=== PATIENT | female | born 1990 | race American Indian/Alaskan Native ===

== ENCOUNTER 2017-04-10 10:36 | Emergency (ER) | payer MEDICAID ==
--- NOTE | 2017-04-10 12:10 | Emergency Department Report ---
ED Headache HPI - General Chief Complaint: Nausea/Vomiting/Diarrhea Stated Complaint: VERAS/NUMBNESS/NAUSEA Time Seen by Provider: 04/10/17 11:56 - History of Present Illness Initial Comments: This is a 26-year-old female nontoxic, well nourished in appearance, no acute signs of distress presents to the ED complaining of that presents with bilateral neck pain radiating to upper extremities and headache x1 week. Patient stated she was diagnosed with sinusitis in [facility] and received Augmentin with no relief. Patient stated headache is getting worse with no relief with OTC mediations. Patient describes headache as diffuse with level of 10/10. Patient describes headache as worst headache. Patient also stated that headaches are causing her to be very nauseous but denies any vomiting. Patient denies any trauma to the head. Patient denies any fever, chills, vomiting, stiff neck, chest pain, blurry vision, visual changes, shortness of breath, hemoptysis, calf pain, calf tenderness, abdominal pain, back pain, dysuria or polyuria or hematuria. Patient denies any neurological symptoms. Patient agrees to chronic headaches but denies this severe. Patient stated darkness makes the patient feel better and lights make headache worse. Patient states allergies to penicillin with unknown reaction. Past medical history includes asthma. Last menstrual cycle 04/03/2017. Timing/Duration: 1 week Quality: achy, other Head Injury Location: other (diffuse) Recent Head Trauma: no recent headache/trauma, frequent headaches, chronic headaches Associated Symptoms: denies symptoms, nausea/vomiting (nausea). denies: confusion, fatigue, facial pain, fever/chills, flushing, loss of consciousness, nasal congestion, nasal drainage, numbness in legs/feet, rash, seizures, sinus infection, stiff neck, vision changes, weakness Allergies/Adverse Reactions: Allergies Penicillins Allergy (Verified 05/11/16 21:23) Unknown Home Medications: Ambulatory Orders Butalbit/Acetamin/Caff/Codeine [Fioricet/Codeine [id number]] 1 cap PO Q8HR PRN #14 cap 05/31/15 Ibuprofen [Motrin] 800 mg PO Q8HR PRN #60 tablet 05/31/15 ALBUTEROL Inhaler [ProAir HFA Inhaler] 2 puff IH QID PRN #1 inhalation 05/11/16 Azithromycin [Zithromax Z-COLTEN] 250 mg PO QDAY #6 tablet 05/11/16 Ibuprofen [Motrin] 800 mg PO Q8HR PRN #14 tablet 05/11/16 Promethazine /Codeine [Phenergan/Codeine 6.25-10 mg/5Ml] 5 ml PO Q6H PRN #90 ml 05/11/16 guaiFENesin [Mucinex] 600 mg PO Q6HR #20 tab.er.12h 05/11/16 Butalb/Acetamin/Caff 50-325-40 [Fioricet] 1 tab PO Q6HR PRN #30 tab 04/10/17 Ondansetron [Zofran Odt] 4 mg PO Q8H #15 tab.rapdis 04/10/17 ED Review of Systems ROS: Stated complaint: VERAS/NUMBNESS/NAUSEA Other details as noted in HPI Constitutional: denies: chills, fever Eyes: denies: eye pain, eye discharge, vision change ENT: denies: ear pain, throat pain Respiratory: denies: cough, shortness of breath, wheezing Cardiovascular: denies: chest pain, palpitations Endocrine: no symptoms reported Gastrointestinal: nausea. denies: abdominal pain, vomiting, diarrhea Genitourinary: denies: urgency, dysuria, discharge Musculoskeletal: back pain (neck region). denies: joint swelling, arthralgia Skin: denies: rash, lesions Neurological: denies: headache, weakness, paresthesias Psychiatric: denies: anxiety, depression Hematological/Lymphatic: denies: easy bleeding, easy bruising ED Past Medical Hx - Past Medical History Previous Medical History?: Yes Hx Asthma: Yes - Surgical History Past Surgical History?: Yes Additional Surgical History: right knee surgery. - Social History Smoking Status: Current Every Day Smoker Substance Use Type: Alcohol, Marijuana, Prescribed - Medications Home Medications: Home Medications Medication Instructions Recorded Confirmed Last Taken Type Butalbit/Acetamin/Caff/Codeine 1 cap PO Q8HR PRN #14 cap 05/31/15 Unknown Rx [Fioricet/Codeine [id number]] Ibuprofen [Motrin] 800 mg PO Q8HR PRN #60 tablet 05/31/15 Unknown Rx ALBUTEROL Inhaler [ProAir HFA 2 puff IH QID PRN #1 inhalation 05/11/16 Unknown Rx Inhaler] Azithromycin [Zithromax Z-COLTEN] 250 mg PO QDAY #6 tablet 05/11/16 Unknown Rx Ibuprofen [Motrin] 800 mg PO Q8HR PRN #14 tablet 05/11/16 Unknown Rx Promethazine /Codeine 5 ml PO Q6H PRN #90 ml 05/11/16 Unknown Rx [Phenergan/Codeine 6.25-10 mg/5Ml] guaiFENesin [Mucinex] 600 mg PO Q6HR #20 tab.er.12h 05/11/16 Unknown Rx Butalb/Acetamin/Caff 50-325-40 1 tab PO Q6HR PRN #30 tab 04/10/17 Unknown Rx [Fioricet] Ondansetron [Zofran Odt] 4 mg PO Q8H #15 tab.rapdis 04/10/17 Unknown Rx ED Physical Exam - General Limitations: No Limitations General appearance: alert, in no apparent distress - Head Head exam: Present: atraumatic, normocephalic - Eye Eye exam: Present: normal appearance, PERRL, EOMI. Absent: scleral icterus, conjunctival injection, nystagmus, periorbital swelling, periorbital tenderness Pupils: Present: normal accommodation - ENT ENT exam: Present: normal exam, normal orophraynx, mucous membranes moist, TM's normal bilaterally, normal external ear exam - Neck Neck exam: Present: normal inspection, full ROM. Absent: tenderness, meningismus, lymphadenopathy, thyromegaly - Expanded Neck Exam Expanded Neck exam: Present: other (Negative Kernig and Brudzinski signs). Absent: tenderness, midline deformity - Respiratory Respiratory exam: Present: normal lung sounds bilaterally. Absent: respiratory distress, wheezes, rales, rhonchi, stridor, chest wall tenderness, accessory muscle use, decreased breath sounds, prolonged expiratory - Cardiovascular Cardiovascular Exam: Present: regular rate, normal rhythm, normal heart sounds. Absent: bradycardia, tachycardia, irregular rhythm, systolic murmur, diastolic murmur, rubs, gallop - GI/Abdominal GI/Abdominal exam: Present: soft, normal bowel sounds. Absent: distended, tenderness, guarding, rebound, rigid, diminished bowel sounds - Rectal Rectal exam: Present: deferred - Extremities Exam Extremities exam: Present: normal inspection, full ROM, normal capillary refill. Absent: tenderness, pedal edema, joint swelling, calf tenderness - Back Exam Back exam: Present: normal inspection, full ROM. Absent: tenderness, CVA tenderness (R), CVA tenderness (L), muscle spasm, paraspinal tenderness, vertebral tenderness, rash noted - Neurological Exam Neurological exam: Present: alert, oriented X3, CN II-XII intact, normal gait, reflexes normal - Expanded Neurological Exam Expanded Patient oriented to: Present: person, place, time Speech: Present: fluid speech Cranial nerves: EOM's Intact: Normal, Gag Reflex: Normal, Tongue Deviation: Normal, Nystagmus: Normal, Facial Sensation: Normal, Facial Palsy with Forehead Movement: Normal, Facial Palsy without Forehead Movement: Normal Cerebellar function: Finger to Nose: Normal, Heel to Randall: Normal, Romberg: Normal Upper motor neuron: Ever Neglect: Normal, Pronator Drift: Normal, Babinski Sign : Normal, Sensory Extinction: Normal Sensory exam: Upper Extremity Light Touch: Normal, Upper Extremity Pin Prick: Normal, Upper Extremity Temperature: Normal, UE 2 Point Discrimination: Normal, Lower Extremity Light Touch: Normal, Lower Extremity Pin Prick: Normal, Lower Extremity Temperature: Normal, LE 2 Point Discrimination: Normal Motor strength exam: RUE: 5, LUE: 5, RLE: 5, LLE: 5 DTR: bicep (R): 2+, bicep (L): 2+, tricep (R): 2+, tricep (L): 2+, knee (R): 2+ , knee (L): 2+, ankle (R): 2+, ankle (L): 2+ Best Eye Response (Ferguson): (4) open spontaneously Best Motor Response (Ferguson): (6) obeys commands Best Verbal Response (Ferguson): (5) oriented Livan Total: 15 - Psychiatric Psychiatric exam: Present: normal affect, normal mood - Skin Skin exam: Present: warm, dry, intact, normal color. Absent: rash ED Course Vital Signs 04/10/17 10:43 Temperature 97.8 F Pulse Rate 79 Respiratory 24 Rate Blood Pressure 131/75 O2 Sat by Pulse 100 Oximetry - Reevaluation(s) Reevaluation #1: 04/10/17 12:14 Patient is speaking in full sentences with no signs of distress noted. ED Medical Decision Making - Medical Decision Making 26-year-old female presents with headache, nausea, and lumbar radiculopathy. Patient was examined by me patient is stable. CT cervical spine without contrast has been obtained and dictated by the radiologist was negative findings of any abnormalities. CBC, BMP, test obtained was normal limits. Patient received 1 L normal saline and Benadryl and Reglan in the ED which patient states symptoms have subsided patient is feeling better. By mouth challenge obtained with signs of nausea or vomiting. Patient was to follow-up with a primary care doctor in 3-5 days or if symptoms worsen continue to emergency room as soon as possible. Patient's friend is currently at the bedside states she'll drive the patient on a discharge because I instructed the patient is drowsy for received Benadryl in the ED. Patient is hemodynamically stable with stable vital signs. Patient states he is feeling better. At time time of discharge, the patient does not seem toxic or ill in appearance. No acute signs of distress noted. Patient agrees to discharge treatment plan of care. No further questions noted by the patient. Critical care attestation.: If time is entered above; I have spent that time in minutes in the direct care of this critically ill patient, excluding procedure time. ED Disposition Clinical Impression: Lumbar radiculopathy, Nausea Headache Qualifiers: Headache type: unspecified Headache chronicity pattern: chronic headache Intractability: not intractable Qualified Code(s): R51 - Headache Disposition: DC-01 TO HOME OR SELFCARE Is pt being admited?: No Does the pt Need Aspirin: No Condition: Stable Instructions: Acute Headache (ED), Butalbital/Acetaminophen/Caffeine (By mouth) , Ondansetron (By mouth) Additional Instructions: Follow-up with a primary care doctor in 3-5 days or if symptoms worsen and continue return to emergency room as soon as possible possible. Patient is hemodynamically stable with stable vital signs. Patient states he is feeling better. At time time of discharge, the patient does not seem toxic or ill in appearance. No acute signs of distress noted. Patient agrees to discharge treatment plan of care. No further questions noted by the patient. Prescriptions: Butalb/Acetamin/Caff 50-325-40 [Fioricet] 1 tab PO Q6HR PRN #30 tab PRN Reason: Headache Ondansetron [Zofran Odt] 4 mg PO Q8H #15 tab.rapdis Referrals: PRIMARY CARE, [Primary Care Provider] - 3-5 Days NOÉ ELIZABETH MD [Staff Physician] - 3-5 Days [facility] [Outside] - 3-5 Days [facility] [Outside] - 3-5 Days Forms: Work/School Release Form(ED)
[2017-04-10] MEDS ORDERED: REGLAN IV ONE (12:16)
[2017-04-10] MEDS ORDERED: BENADRYL IV ONE (12:16)
[2017-04-10] MEDS ORDERED: NACL 0.9% 1000 ML 1,000 ML IV ONE (12:16)
[2017-04-10 12:24] LABS: Hematocrit 39.1 % (30.3-42.9); Hemoglobin 12.5 gm/dl (10.1-14.3); Mean Corpuscular HGB Conc 32 % (30-34); Mean Corpuscular Volume 73 fl (79-97); Platelet Count 167 K/mm3 (140-440); Red Blood Count 5.39 M/mm3 (3.65-5.03); Red Cell Distribution Width 14.7 % (13.2-15.2); White Blood Count 12.2 K/mm3 (4.5-11.0)
[2017-04-10 12:26] LABS: Mean Corpuscular Hemoglobin 23 pg (28-32)
[2017-04-10 12:29] LABS: Anion Gap 15 mmol/L; BUN/Creatinine Ratio 16; Blood Urea Nitrogen 13 mg/dL (7-17); Calcium 8.7 mg/dL (8.4-10.2); Carbon Dioxide 27 mmol/L (22-30); Chloride 100.6 mmol/L (98-107); Glucose 114 mg/dL (65-100); Potassium 4.2 mmol/L (3.6-5.0); Sodium 138 mmol/L (137-145)
[2017-04-10 12:39] LABS: Bilirubin,Urine NEG (Negative); Blood,Urine NEG (Negative); Ketones,Urine NEG (Negative); Leukocyte Esterase,Urine NEG (Negative); Mucus,Urine FEW /HPF; Nitrite,Urine NEG (Negative); Protein,Urine <15 mg/dL mg/dL (Negative); Urobilinogen,Urine < 2.0 mg/dL (<2.0); WBC,Urine < 1.0 /HPF (0.0-6.0)
--- NOTE | 2017-04-10 12:55 | Cat Scan Report ---
CT scan of head without IV contrast: History: Headache. Findings: Ventricles are normal in size and midline in location. No evidence of acute ischemia, hemorrhage or mass. The extra-axial fluid collection. Normal brainstem and cerebellum. Normal sinuses and mastoid air cells. Impression: No acute intracranial abnormality.
[2017-04-10 14:08] LABS: Anisocytosis 1+; Basophils % (Manual) 0 % (0.0-1.8); Blastocytes % (Manual) 0 %; Diff Status Complete; Eosinophils % (Manual) 0 % (0.0-4.3); Platelet Estimate Consistent w Auto
[2017-04-10 15:03] VITALS: BP 130/70
== END 2017-04-10 15:01 | disposition home or self-care (01) ==
LOC: ED 10:36
DX: M54.16 Radiculopathy, lumbar region (principal); R51 Headache; F17.210 Nicotine dependence, cigarettes, uncomplicated; F12.10 Cannabis abuse, uncomplicated
CPT/HCPCS: 36415; 70450; 80048; 81001; 81025; 84703; 85007; 85025; 96361; 96374; 96375; 99284; J1200; J2765; J7030